=== PATIENT | female | born 1945 ===

== ENCOUNTER 2017-10-28 18:43 | Emergency (ER) | payer OTHER ==
--- NOTE | 2017-10-28 19:41 | ED PDOC ---
Arrival/HPI - General Time Seen by Provider: 10/28/17 19:35 Historian: Patient - History of Present Illness Narrative History of Present Illness (Text): 10/28/17 19:41 A 72 year old female, whose past medical history includes hypertension, hyperlipidemia, asthma and iron deficiency anemia, brought into the emergency department by EMS for worsening shortness of breath since this morning. She reports shortness of breath and non-productive cough. She reports that she ran out of her nebulizer so presented to the ED. Patient notes a subjective fever and cough but denies any nausea, vomiting, diarrhea, abdominal pain, chest pain or any other complaints. PMD: Dr. Jorge Time/Duration: Other (this morning) Symptom Course: Unchanged Quality: Other Context: Home Past Medical History - Provider Review Nursing Documentation Reviewed: Yes - Cardiac Hx Pacemaker: No - Pulmonary Hx Respiratory Disorders: Yes Hx Asthma: Yes - Neurological Hx Paralysis: No - HEENT Hx HEENT Disorder: No - Renal Hx Renal Disorder: No - Endocrine/Metabolic Hx Endocrine Disorders: No - Hematological/Oncological Hx Blood Transfusions: No - Integumentary Hx Dermatological Disorder: No - Musculoskeletal/Rheumatological Hx Musculoskeletal Disorders: Yes Hx Arthritis: Yes Hx Back Pain: Yes - Gastrointestinal Hx Gastrointestinal Disorders: Yes Other/Comment: STOMACH ACID - Genitourinary/Gynecological Hx Genitourinary Disorders: No - Psychiatric Hx Psychophysiologic Disorder: No Hx Substance Use: No - Surgical History Hx Orthopedic Surgery: Yes (RT KNEE) - Anesthesia Hx Anesthesia: Yes Hx Anesthesia Reactions: No Hx Malignant Hyperthermia: No Family/Social History - Physician Review Nursing Documentation Reviewed: Yes Family/Social History: No Known Family HX Smoking Status: Never Smoked Hx Alcohol Use: No Hx Substance Use: No Allergies/Home Meds Allergies/Adverse Reactions: Allergies Penicillins Allergy (Severe, Verified 06/30/17 10:48) RASH Home Medications: Home Meds Medication Instructions Recorded Confirmed Albuterol Sulfate [Proair Hfa] 2 puff IH PRN PRN 06/30/17 10/28/17 Ferrous Sulfate [Feosol] 325 mg PO DAILY 06/30/17 10/28/17 Fluticasone/Salmeterol 500/50 1 puff IH BID 06/30/17 10/28/17 [Advair Diskus] [id number] Ethyl Esters [OMEGA 3] 1 cap PO DAILY 06/30/17 10/28/17 amLODIPine [Norvasc] 10 mg PO QAM 06/30/17 10/28/17 Albuterol Sulfate [Proair Hfa] 0.09 mg IH DAILY PRN 07/08/17 10/28/17 Amlodipine Besylate/Benazepril 1 cap PO DAILY 07/08/17 10/28/17 [Amlodipine Besylate and Benazepril Hydrochlor] Baclofen [Lioresal] 10 mg PO DAILY 07/08/17 10/28/17 Cholecalciferol (Vitamin D3) 2,000 unit PO DAILY 07/08/17 10/28/17 [Vitamin D3] Omeprazole 20 mg PO DAILY 07/08/17 10/28/17 Simvastatin 20 mg PO DAILY 07/08/17 10/28/17 traMADol [Ultram] 50 mg PO Q6 PRN 07/08/17 10/28/17 Review of Systems - Physician Review All systems were reviewed & negative as marked: Yes - Review of Systems Constitutional: Fevers Respiratory: SOB, Cough, Wheezing Cardiovascular: absent: Chest Pain, Palpitations Gastrointestinal: absent: Abdominal Pain, Diarrhea, Nausea, Vomiting Physical Exam Vital Signs Temp Pulse Resp BP Pulse Ox 10/28/17 22:15 95 H 19 122/63 98 10/28/17 19:53 102.4 F H 114 H 16 95 10/28/17 19:30 110 H 24 100 Temperature: Afebrile Blood Pressure: Normal Pulse: Tachycardic Respiratory Rate: Normal Appearance: Positive for: Well-Appearing, Non-Toxic, Comfortable Pain Distress: None Mental Status: Positive for: Alert and Oriented X 3 - Systems Exam Head: Present: Atraumatic, Normocephalic Pupils: Present: PERRL Extroacular Muscles: Present: EOMI Conjunctiva: Present: Normal Mouth: Present: Moist Mucous Membranes Neck: Present: Normal Range of Motion Respiratory/Chest: Present: Wheezes (scant), Decreased Breath Sounds. No: Respiratory Distress, Accessory Muscle Use Cardiovascular: Present: Regular Rate and Rhythm, Normal S1, S2. No: Murmurs Abdomen: Present: Normal Bowel Sounds. No: Tenderness, Distention, Peritoneal Signs Back: Present: Normal Inspection Upper Extremity: Present: Normal Inspection. No: Cyanosis, Edema Lower Extremity: Present: Normal Inspection. No: Edema Neurological: Present: GCS=15, CN II-XII Intact, Speech Normal Skin: Present: Warm, Dry, Normal Color. No: Rashes Psychiatric: Present: Alert, Oriented x 3, Normal Insight, Normal Concentration Medical Decision Making ED Course and Treatment: 10/28/17 19:41 Impression: A 72 year old female with shortness of breath. Plan: -- Chest xray -- EKG -- Labs -- Influenza A B Stat -- Duoneb -- Reassess and disposition Progress Notes: Chest xray read and interpreted by me, which shows R sided pna 10/28/17 21:30 On reevaluation after duoneb, patient reports that she feels better. Wheezing resolved. Vitals WNL. Curb 65 score of 1: low risk. Ambulated around the ED without issue. Spoke to family and patient. She reports that she wants to go home. 10/28/17 22:21 - Lab Interpretations Lab Results: 10/28/17 20:00 10/28/17 20:00 Lab Results 10/28/17 20:15: Influenza Typ A,B (EIA) Negative for flu a/b 10/28/17 20:00: pO2 47, VBG pH 7.38, VBG pCO2 54.0, VBG HCO3 31.9 H, VBG Total CO2 33.6 H, VBG O2 Sat (Calc) 86.3 H, VBG Base Excess 5.3 H, VBG Potassium 3.3 L , Sodium 140.0, Chloride 105.0, Glucose 150 H, Lactate 1.2, FiO2 21.0, Venous Blood Potassium 3.3 L 10/28/17 20:00: Sodium 141, Chloride 102, Potassium 3.2 L, Carbon Dioxide 30, Anion Gap 12, BUN 10, Creatinine 0.8, Est GFR ( Amer) > 60, Est GFR (Non- Af Amer) > 60, Random Glucose 145 H, Calcium 9.2, Total Bilirubin 0.3, AST 25, ALT 21, Alkaline Phosphatase 66, Troponin I < 0.01, NT-Pro-B Natriuret Pep 111, Total Protein 7.7, Albumin 4.4, Globulin 3.3, Albumin/Globulin Ratio 1.3 10/28/17 20:00: WBC 6.5, RBC 3.87, Hgb 11.2 L, Hct 35.6 L, MCV 92.0, MCH 28.9, MCHC 31.5, RDW 14.5, Plt Count 260, MPV 9.8, Gran % 78.3 H, Lymph % (Auto) 10.9 L, [place] % (Auto) 9.4 H, Eos % (Auto) 0.6 L, Baso % (Auto) 0.8, Gran # 5.10, Lymph # 0.7 L, [place] # 0.6, Eos # 0.0, Baso # 0.05 I have reviewed the lab results: Yes - RAD Interpretation Radiology Orders: 10/28/17 19:50 CHEST TWO VIEWS (PA/LAT) [RAD] Stat - Medication Orders Current Medication Orders: Discontinued Medications Acetaminophen (Tylenol 325mg Tab) 650 mg PO STAT STA Stop: 10/28/17 19:53 Last Admin: 10/28/17 20:00 Dose: 650 mg Albuterol/Ipratropium (Duoneb 3 Mg/0.5 Mg (3 Ml) Ud) 3 ml IH STAT STA Stop: 10/28/17 19:52 Last Admin: 10/28/17 20:15 Dose: 3 ml Azithromycin (Zithromax) 500 mg PO STAT STA PRN Reason: Protocol Stop: 10/28/17 21:35 Last Admin: 10/28/17 22:06 Dose: 500 mg Sodium Chloride (Sodium Chloride 0.9%) 1,000 mls @ 999 mls/hr IV .Q1H1M STA Stop: 10/28/17 20:52 Last Admin: 10/28/17 20:00 Dose: 999 mls/hr eMAR Start Stop Document 10/28/17 20:00 RD (Rec: 10/28/17 20:15 RD [facility]) Intravenous Solution Start Date 10/28/17 Start Time 20:00 End Date 10/28/17 End time 21:00 Total Infusion Time 60 - Scribe Statement The provider has reviewed the documentation as recorded by the Amandeep Hart Provider Scribe Attestation: All medical record entries made by the Scribe were at my direction and personally dictated by me. I have reviewed the chart and agree that the record accurately reflects my personal performance of the history, physical exam, medical decision making, and the department course for this patient. I have also personally directed, reviewed, and agree with the discharge instructions and disposition. Disposition/Present on Arrival - Present on Arrival Any Indicators Present on Arrival: No - Disposition Have Diagnosis and Disposition been Completed?: Yes Diagnosis: Pneumonia Disposition: HOME/ ROUTINE Disposition Time: 21:32 Patient Plan: Discharge Condition: GOOD Discharge Instructions (ExitCare): Community Acquired Pneumonia (ED) Print Language: [place] Additional Instructions: Follow-up with your PMD tomorrow morning. Return to ED if condition worsens. Take full course of antibiotics. Prescriptions: Albuterol 0.083% [Albuterol Sulfate 3 Ml] 3 ml IH Q6H PRN #100 neb PRN Reason: Wheezing Azithromycin 250 mg PO DAILY #4 tablet Referrals: Sarabjit Jorge MD [Primary Care Provider] - Follow up with primary Forms: [employer] (Greek)
[2017-10-28 19:46] VITALS: BMI 32.9
[2017-10-28] MEDS ORDERED: Albuterol-Ipratrop 3 mg / 0.5 (3 ml) UD IH STA (19:51)
[2017-10-28] MEDS ORDERED: Sodium Chloride 0.9% 1,000 ML IV STA (19:52)
[2017-10-28 20:05] VITALS: TEMP 102.4
[2017-10-28 20:21] LABS: BASO # 0.05 K/mm3 (0.0-2.0); BASO % 0.8 % (0.0-3.0); EOS % 0.6 % (1.5-5.0); GRAN # 5.1 (1.4-6.5); GRAN % 78.3 % (50.0-68.0); HEMOGLOBIN 11.2 g/dL (12.0-16.0); LYMPH # 0.7 (1.2-3.4); LYMPH % 10.9 % (22.0-35.0); MEAN CORPUSCULAR HEMOGLOBIN 28.9 pg (25.0-35.0); MEAN CORPUSCULAR HGB CONC 31.5 g/dl (31.0-37.0); MEAN PLATELET VOLUME 9.8 fl (7.0-11.0); MONO # 0.6 (0.1-0.6); MONO % 9.4 % (1.0-6.0); RBC 3.87 10^6/uL (3.5-6.1); RED CELL DISTRIBUTION WIDTH 14.5 % (11.5-14.5); WHITE BLOOD COUNT 6.5 10^3/ul (4.5-11.0)
[2017-10-28 20:24] LABS: VENOUS BLOOD GAS BASE EXCESS 5.3 mmol/L (0.0-2.0); VENOUS BLOOD GAS PO2 47 mm/Hg (30-55); VENOUS BLOOD PH 7.38 (7.32-7.43)
[2017-10-28 20:31] LABS: ALB/GLOB RATIO 1.3 (1.1-1.8); ALBUMIN 4.4 g/dL (3.0-4.8); ALT/SGPT 21 U/L (7-56); AST/SGOT 25 U/L (14-36); BLOOD UREA NITROGEN 10 mg/dL (7-21); CALCIUM 9.2 mg/dL (8.4-10.5); GFR AFRICAN-AMERICAN > 60; GFR NON-AFRICAN AMERICAN > 60
[2017-10-28 20:42] LABS: B-TYPE NATRIURETIC PEPTIDE 111 pg/mL (0-450); TROPONIN I < 0.01 ng/mL
[2017-10-28 22:27] VITALS: BP 122/63; PULSE 95; RESP 19; O2SAT 98
--- NOTE | 2017-10-29 09:56 | RAD ---
HISTORY: shortness of breath COMPARISON: No prior. TECHNIQUE: Chest PA and lateral FINDINGS: LUNGS: No active pulmonary disease. PLEURA: No significant pleural effusion identified. No pneumothorax apparent. CARDIOVASCULAR: Mild cardiomegaly OSSEOUS STRUCTURES: No significant abnormalities. VISUALIZED UPPER ABDOMEN: Normal. OTHER FINDINGS: None. IMPRESSION: No active disease.
--- NOTE | 2017-10-29 20:29 | CARD ---
APPROVED REPORT EKG Measurement Heart [id number] <Conclusion> Sinus tachycardia Left axis deviation Moderate voltage criteria for LVH, may be normal variant Abnormal ECG
== END 2017-10-28 22:15 | disposition home or self-care (01) ==
LOC: ED 18:43
DX: J18.9 Pneumonia, unspecified organism (principal); I10 Essential (primary) hypertension; E78.5 Hyperlipidemia, unspecified
CPT/HCPCS: 71046; 80053; 82803; 83880; 84484; 85025; 87040; 87804; 93005; 96360; 99284; J7040